=== PATIENT | male | born 1940 | race Caucasian/White ===

== ENCOUNTER 2020-09-26 09:45 | Outpatient (CLI) | payer OTHER, SELFPAY ==
--- NOTE | ~2020-09-26 | XR_ITS ---
EXAMINATION: XR barium swallow modified DATE: 09/26/2020 10:17 INDICATION: Dysphagia. TECHNIQUE: The patient was given barium-containing material of multiple consistencies to swallow by t rocío speech pathologist while I performed fluoroscopy. Fluoroscopy exposure time was 2.0 minutes. The n umber of fluoroscopy images saved to the PACS was 2. Dose-area product was 1.327 Gy-cm^2. FINDINGS: The oral stage demonstrates lingual pumping and apraxia of the swallow. The pharyngeal stage demonstr ates reduced laryngeal elevation, reduced tongue base retraction, reduced pharyngeal squeeze, vallecu lar residue, piriform sinus residue, pharyngeal wall residue, and laryngeal penetration. There is tra ce aspiration with thin liquids and pudding. IMPRESSION: 1. Trace aspiration with thin liquids and pudding. 2. Please refer to the speech therapy report for recommendations. Reviewed, dictated and finalized at location A.
--- NOTE | 2020-09-26 16:12 | STOPEVAL ---
MODIFIED BARIUM SWALLOW EVALUATION: Thank you for referring Willian Novoa to [facility].? Attending Provider: Zack Hurst fax: Outpatient Past Medical History Past Medical History Source of Past Medical History Patient,Family/Significant Other Neurological History Hx Cerebrovascular Accident (CVA) Yes: multiple but most recent 07-23-20 Gastrointestinal History Hx Other Gastrointestinal Disorders Yes: PEG tube r/t dysphagia Prior Level of Function Prior Swallow Level Prior Intake Method NPO/PEG Comments Additional Prior Level of Function reportedly pt has PEG tube for Comments nutrition but is able to have mildly thick liquids and pudding consistency for pleasure feeding Modified Barium Swallow Evaluation Recent Swallowing History Reports Dysphagia Yes Onset of Dysphagia 07-23-20 History of Dysphagia Yes History of Related Medical Diagnosis CVA Other Factors Impacting Dysphagia Neurological Impairment History of Pneumonia No Reported Difficult Consistencies Thin Liquids,Thick Liquids, Pureed,Solids Intake Method Prior to Swallow Gastrostomy,NPO Evaluation Consistency Thin Uncontrolled 1 Other Amount cued to take a small sip Method of Presentation Cup Oral Preparatory Phase Comments swallow apraxia; lingual pumping Oral Phase Comments prolonged oral stage r/t apraxia Pharyngeal Phase Symptoms Aspiration,Bony Protuberance, Laryngeal Penetration,Reduced Laryngeal Elevation,Reduced Lingual Pressure,Residue in [place],Residue/Pyriform Sinus Severity of Vallecular Residue Mild - 5-25 % Epiglottic Ligament Visable Severity of Pyriform Sinus Residue Mild - 5-25 % Up Wall to Quarter Full 8 Point Laryngeal Penetration-Aspiration Material Enters Airway Below Scale Vocal Cords, No Effort Made to Eject Aspiration Timing After the Swallow Aspiration Severity Trace Cervical/Esophageal Symptoms Within Functional Limits Pureed Consistency Method of Presentation Spoon Oral Preparatory Phase Comments swallow apraxia; lingual pumping Oral Phase Comments prolonged oral stage r/t apraxia Pharyngeal Phase Symptoms Aspiration,Bony Protuberance, Coating/Pharyngeal Nelson, Laryngeal Penetration,Reduced
== END 2020-09-26 09:46 | disposition home or self-care (01) ==
LOC: ANHIMG 09:51
DX: R13.10 Dysphagia, unspecified (principal)
CPT/HCPCS: 92611

== ENCOUNTER 2020-11-17 10:26 | Outpatient (CLI) | payer OTHER, SELFPAY ==
--- NOTE | ~2020-11-17 | XR_ITS ---
EXAMINATION: XR barium swallow modified DATE: 11/17/2020 11:00 INDICATION: Dysphagia. TECHNIQUE: The patient was given barium-containing material of multiple consistencies to swallow by charanjit alford speech pathologist while I performed fluoroscopy. Dose-area product was 4.2 Gy-cm2. 6.7 minutes fluoroscopy time FINDINGS: Oral Stage: Delay secondary to excessive lingual pumping to initiate swallow, Pharyngeal Phase: Mild reduced laryngeal elevation, mild to moderate reduced tongue base retraction mildly reduced pharyngeal squeeze Moderate vallecular and piriform sinus residue Laryngeal penetration 5 cc thin liquid by spoon. No aspiration. Cervical/Esophageal Stage: Within functional limits IMPRESSION: Modified esophagram findings as above. Please refer to the speech therapy report for [facility]. Reviewed, dictated and finalized at Location [facility]. Reviewed, dictated and finalized at location A. IMPRESSION: Modified esophagram findings as above. Please refer to the speech t herapy report for specific recommendations.
--- NOTE | 2020-11-17 12:09 | STOPEVAL ---
Thank you for referring Willian Novoa to [facility].? The patient is scheduled to be seen for therapy? ____x/week for ___ weeks. Please review, sign, date and return this plan of care PIERCE. I agree with and certify that the following plan of care is medically necessary. Referring Physician Date Admitting Provider: Attending Provider: Zack Hurst Referring Provider:
--- NOTE | 2020-11-17 12:26 | STOPEVAL ---
Thank you for referring Willian Novoa to [facility].? The patient is scheduled to be seen for therapy? ____x/week for ___ weeks. Please review, sign, date and return this plan of care PIERCE. I agree with and certify that the following plan of care is medically necessary. Referring Physician Date Admitting Provider: Attending Provider: Zack Hurst Referring Provider: SARA Outpatient Evaluation Start: 11/17/20 12:14 Freq: Status: Active Protocol: Document 11/17/20 12:19 [facility] (Rec: 11/17/20 12:26 [email or web address]) Outpatient Past Medical History Neurological History Hx Cerebrovascular Accident (CVA) Yes: multiple but most recent 07-23-20 Gastrointestinal History Hx Other Gastrointestinal Disorders Yes: PEG tube r/t dysphagia Pain Assessment Timing of Pain Assessment Timing of Pain Assessment Assessment Self Report Self Report Pain Level 0 Pain Score Pain Score 0: Self Report Modified Barium Swallow Evaluation Consistency Thin Uncontrolled 1 Method of Presentation Cup Oral Preparatory Symptoms Within Functional Limits Oral Phase Symptoms Delayed Onset,Lingual Pumping, Slow Oral Transit Pharyngeal Phase Symptoms Residue in [place],Residue/ Pyriform Sinus Severity of Vallecular Residue Trace - 1-5 % Trace Coating of the Mucosa Severity of Pyriform Sinus Residue Trace - 1-5 % Trace Coating of the Mucosa 8 Point Laryngeal Penetration-Aspiration Material Does Not Enter Airway Scale Cervical/Esophageal Symptoms Within Functional Limits Mildly Thick Uncontrolled 1 Method of Presentation Cup Oral Preparatory Symptoms Within Functional Limits Oral Phase Symptoms Delayed Onset,Lingual Pumping, Slow Oral Transit Pharyngeal Phase Symptoms Residue in [place],Residue/ Pyriform Sinus Severity of Vallecular Residue Mild - 5-25 % Epiglottic Ligament Visable Severity of Pyriform Sinus Residue Trace - 1-5 % Trace Coating of the Mucosa 8 Point Laryngeal Penetration-Aspiration Material Does Not Enter Airway Scale Cervical/Esophageal Symptoms Within Functional Limits Mildly Thick 5 mL Method of Presentation Spoon Oral Preparatory Symptoms Within Functional Limits Oral Phase Symptoms Delayed Onset,Lingual Pumping, Slow Oral Transit Pharyngeal Phase Symptoms Residue in [place],Residue/ Pyriform Sinus Severity of Vallecular Residue Mild - 5-25 % Epiglottic Ligament Visable Severity of
== END 2020-11-17 10:27 | disposition home or self-care (01) ==
DX: R13.10 Dysphagia, unspecified (principal)
CPT/HCPCS: 92611

== ENCOUNTER 2020-12-30 10:14 | Observation (INO) | payer OTHER, SELFPAY ==
[2020-12-30] VITALS (16 sets, daily range): BP systolic 123–151; BP diastolic 55–85; PULSE 58–128; RESP 14–20; TEMP 36.4–36.9; O2SAT 97–99; BMI 17.6
--- NOTE | ~2020-12-30 | XR_ITS ---
EXAMINATION: XR chest 2V DATE: 12/30/2020 10:38 INDICATION: Weakness TECHNIQUE: frontal and lateral views of the chest were obtained. COMPARISON: Chest radiograph dated 04/17/2018 FINDINGS: New airspace opacities in the left lower lobe concerning for aspiration or pneumonia. Right lung roshni ins clear. No pleural effusion or pneumothorax. The cardiomediastinal silhouette is within normal peraza its for AP technique. Moderate cervical spondylosis. There are bridging osteophytes at multiple level s in the spine, consistent with diffuse idiopathic skeletal hyperostosis (DISH). IMPRESSION: 1. Left lower lobe opacities with differential in the acute setting including pneumonia, aspiration o r less likely asymmetric pulmonary edema. Reviewed, dictated and finalized at location A. IMPRESSION: 1. Left lower lobe opacities with differential in the acute setting including p neumonia, aspiration or less likely asymmetric pulmonary edema.
--- NOTE | ~2020-12-30 | US_ITS ---
EXAMINATION: US abdomen limited DATE: 12/31/2020 09:08 INDICATION: Hyperbilirubinemia. TECHNIQUE: Multiple grayscale and Doppler ultrasound images of the abdomen were obtained. COMPARISON: None FINDINGS: The visualized portions of the head and body of the pancreas are normal. The liver is nasim l without focal lesion. No liver surface nodularity. The gallbladder is normal in size and contains g allstones. Gallbladder wall thickening is noted. No sonographic Azar sign. The common duct is nasim l and measures 3 mm. 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 IMPRESSION: 1. Cholelithiasis. Gallbladder wall thickening may be secondary to chronic cholecystitis, chronic everardo er disease, or interstitial edema. 2. 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 Reviewed, dictated and finalized at location A. IMPRESSION: 1. Cholelithiasis. Gallbladder wall thickening may be secondary to chronic chol ecystitis, chronic liver disease, or interstitial edema. 2. 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
--- NOTE | 2020-12-30 10:26 | ECG_ITS ---
Measurements Intervals Mather Rate: 85 P: [place]: 0 QRS: 45 QRSD: 121 T: 88 QT: 458 QTc: 546 Interpretive Statements ATRIAL FIBRILLATION VENTRICULAR PREMATURE COMPLEX INCOMPLETE LEFT BUNDLE BRANCH BLOCK VOLTAGE CRITERIA FOR LVH BORDERLINE ST-T WAVE ABNORMALITY- INF/LAT LEADS BASELINE ARTIFACT- II, III, AVR, AVF, V2-V6 ABNORMAL ECG Electronically Signed On 12-30-2020 17:13:08 CDT by Maurice Gomez D.O.
[2020-12-30 11:02] LABS: Basophils Percent Auto 0.2 % (0.2-1.2); Eosinophils Percent Auto 0.1 % (0-4.4); Hemoglobin 13.7 g/dL (14.0-18.0); Immature Granulocyte Absolute 0.06 K/mm3 (0.00-0.031); Immature Granulocyte Percent A 0.5 % (0-0.5); Lymphocytes Absolute Auto 0.77 K/mm3 (0.9-3.2); Lymphocytes Percent Auto 6.3 % (18.3-44.2); Mean Corpuscular HGB Conc 34.3 g/dl (32-36); Mean Corpuscular Hemoglobin 33.3 pg (26-34); Mean Corpuscular Volume 97.1 fl (80-100); Mean Platelet Volume 10.1 fl (7.4-10.4); Monocytes Absolute Auto 0.6 K/mm3 (0.1-0.6); Monocytes Percent Auto 4.5 % (2.6-8.5); Neutrophils Absolute Auto 10.9 K/mm3 (1.3-6.7); Neutrophils Percent Auto 88.4 % (45.5-73.1); Platelet Count Result 110 k/mm3 (150-375); Red Blood Count 4.12 M/mm3 (4.6-6.20); Red Cell Distribution Width 13.2 % (11.5-14.5); White Blood Count 12.3 K/mm3 (4.5-10.0)
[2020-12-30 11:14] LABS: Alanine Aminotransferase 26 U/L (4-50); Albumin Level 3.5 g/dL (3.5-5.1); Alkaline Phosphatase 76 U/L (38-126); Anion Gap 6 mmol/L (8-16); Aspartate Amino Transferase 30 U/L (17-59); Bilirubin,Total 3.6 mg/dL (0.2-1.3); Blood Urea Nitrogen 24 mg/dL (9-20); Calcium 9.6 mg/dL (8.4-10.2); Carbon Dioxide 34 mmol/L (22-30); Chloride 99 mmol/L (98-107); Estimated CRCL calculation 42 ml/min; Estimated Glomerular Filt Rate > 60; Glucose 129 mg/dL (65-110); Potassium 2.8 mmol/L (3.4-5.0); Sodium 139 mmol/L (137-145)
--- NOTE | 2020-12-30 11:57 | PC.NURSE ---
Patient's tells me that patient's mentation and speech is normal for him following a stroke that occurred in june of this year. She does tell me that the patient does need thickened liquids and is able to eat soft foods and that he has not had any change in his appetite prior to today. Lastly she tells me that the patient has not had any medication today.
--- NOTE | 2020-12-30 12:13 | PC.NURSE ---
Moderately thick orange juice ordered from Diet[facility] at this time.
[2020-12-30] MEDS: POTASSIUM CHLORIDE 20 MEQ PACKET (FOR LIQUID) 40 MEQ PO (12:31)
[2020-12-30] MEDS: SODIUM CHLORIDE 0.9% IV 1,000 ML 125 ML (12:45)
--- NOTE | 2020-12-30 13:12 | ED.WEAKNESS ---
HPI - Weakness General Chief complaint: Weakness Stated complaint: weakness/near syncope Time Seen by Provider: 12/30/20 10:19 History of Present Illness HPI Narrative: Patient is an 80-year-old male who presents ER with weakness and near syncope. Patient was getting out of the shower when he became lightheaded and eased him down to the ground he was too weak to get back up. Reports has been having progressive cough for the last week. No known Covid exposure. Denies fevers or chills or sweats. He denies any chest pain is only oriented x2. He is aware that he had a near syncopal event however. Related Data Home Medications Medication Instructions Recorded Confirmed apixaban [Eliquis] 5 mg PO BID 12/30/20 12/30/20 bimatoprost [Lumigan] 1 drp LEFT EYE HS 12/30/20 12/30/20 cholecalciferol (vitamin D3) 50 mcg PO DAILY 12/30/20 12/30/20 [Vitamin D3] diltiazem HCl 30 mg PO QID 12/30/20 12/30/20 lisinopril 40 mg PO DAILY 12/30/20 12/30/20 metoprolol tartrate 50 mg PO BID 12/30/20 12/30/20 simvastatin 20 mg PO HS 12/30/20 12/30/20 timolol maleate 1 drp LEFT EYE DAILY 12/30/20 12/30/20 Allergies Allergy/AdvReac Type Severity Reaction Status Date / Time Penicillins Allergy Severe Rash Verified 12/30/20 14:03 Review of Systems Review of Systems: ROS unobtainable: Yes unobtainable due to mental status [facility] Past Medical History Medical History (Updated 12/30/20 @ 18:28 by Jp Dias MD) Atrial fibrillation Benign prostatic hyperplasia Cerebrovascular accident Chronic anticoagulation Glaucoma Hyperlipidemia Hypertension Surgical History Surgical History (Updated 12/30/20 @ 13:44 by Nicky Miles PA-C) History of open reduction and internal fixation (ORIF) procedure Left 5th finger. History of tonsillectomy Family History Family History (Updated 12/30/20 @ 13:44 by Nicky Miles PA-C) Mother Diabetes mellitus Social History Social History (Updated 12/30/20 @ 13:45 by Nicky Miles PA-C) Social History: The patient lives with his in [place]. Smoking status: Never smoker Alcohol intake: never Substance use: never Spiritual care concerns: No Exam Narrative: GENERAL: Chronically ill-appearing, well-nourished, and in no acute distress. HEAD: Normocephalic, atraumatic. EYES: PERRL and EOMI. ENT: Mucous membranes moist. CHEST: Clear to auscultation. No respiratory distress. HEART: Irregular regular rate and rhythm. Normal peripheral pulses. ABDOMEN: Soft, nontender, nondistended. EXTREMITIES: Normal range of motion. No edema. SKIN: Warm, dry, no rash. NEURO: Alert and oriented x2. Course Course Emergency Course: Admit to the hospitalist service for weakness and pneumonia and hypokalemia. Also patient is going to fibrillation with RVR while in the ER and he has been given diltiazem IV. Vital Signs Vital signs: Vital Signs Temperature 98 F 12/30/20 10:20 Pulse Rate 91 12/30/20 10:20 Respiratory Rate 16 12/30/20 10:20 Blood Pressure 134/66 12/30/20 10:20 Pulse Oximetry 98 12/30/20 10:20 Temperature 97.6 F 12/30/20 15:42 Pulse Rate 89 12/30/20 18:00 Respiratory Rate 16 12/30/20 15:42 Blood Pressure 151/83 H 12/30/20 15:42 Pulse Oximetry 98 12/30/20 15:42 MDM - Weakness Lab Data Result diagrams: 12/30/20 10:55 12/30/20 10:56 Labs: Lab Results 12/30/20 12/30/20 12/30/20 Range/Units 10:55 10:56 13:10 WBC 12.3 H (4.5-10.0) K/mm3 RBC 4.12 L (4.6-6.20) M/mm3 Hgb 13.7 L (14.0-18.0) g/dL Hct 40.0 L (42.0-52.0) % MCV 97.1 (80-100) fl MCH 33.3 (26-34) pg MCHC 34.3 (32-36) g/dl RDW 13.2 (11.5-14.5) % Plt Count 110 L (150-375) k/mm3 MPV 10.1 (7.4-10.4) fl Immature Gran % (Auto) 0.5 (0-0.5) % Neut % (Auto) 88.4 H (45.5-73.1) % Lymph % (Auto) 6.3 L (18.3-44.2) % [place] % (Auto) 4.5 (2.6-8.5) % Eos % (Auto)
[2020-12-30 13:48] LABS: Add Urine Microscopic? YES; Appearance Urine Clear (Clear); Bilirubin Urine Negative (Negative); Blood Urine 1+ (Negative); Color Urine Yellow (Yellow); Glucose Urine UA Negative (Negative); Ketones Urine Negative (Negative); Leukocyte Esterase Ur Negative LEU/UL (Negative); Mucus Urine Rare /lpf; Nitrate Urine Negative (Negative); Protein Urine 2+ mg/dL (Negative); Specific Grav Ur 1.017 (1.001-1.035); WBC Urine 0-3 /hpf
--- NOTE | 2020-12-30 14:00 | PM.IMHP ---
H&P: HPI History of Present Illness Date/Time: 12/30/20 14:00 Chief Complaint: Weakness. Narrative: This is a very pleasant 80-year-old male with history of stroke, hypertension, hyperlipidemia, and atrial fibrillation who presented to the emergency department earlier today via EMS from home for evaluation of weakness. He has been feeling in his usual state of health recently and he reportedly had no complaints upon waking this morning. Not long prior to arrival, his was helping him take a shower when he began to feel weak quite suddenly though luckily his was able to gently lower him to the ground without incident. He did not sustain any injuries and he denies loss of consciousness. He also denies feeling near syncopal and really was not feeling lightheaded or dizzy, just profoundly weak all over. On arrival to the emergency department his vital signs were stable. His potassium level was low at 2.8 and he in his indicate that he has had issues with low potassium in the past though he is not on supplementation at home. Chest x-ray demonstrated left lower lobe opacities consistent with pneumonia, aspiration, or less likely pulmonary edema. With further questioning he has been seeing a speech therapist since his most recent stroke in June 2020; his G-tube was removed relatively recently, within the last month or so. On occasion he has difficulties swallowing and in fact he did cough shortly after eating a bite of putting not long prior to my arrival to the room. At this time he has no complaints, tells me he feels just fine and was quite disappointed that he is being admitted to the hospital overnight. He specifically denies fever, chills, sweats, headache, vertigo, syncope, near syncope, cold and flu symptoms, cough, shortness of breath, chest pain, pleuritic pain, nausea, vomiting, diarrhea, and dysuria. No sick contacts or COVID exposure. Review of Systems Review of Systems: Twelve systems were reviewed with pertinent positives and negatives as per HPI. Except as documented, all other systems were reviewed and are negative. [facility] Past Medical History Medical History (Updated 12/30/20 @ 18:37 by Nicky Miles PA-C) Atrial fibrillation Benign prostatic hyperplasia Cerebrovascular accident Ischemic stroke in 2006. Hemorrhagic stroke on 04/17/2018. Ischemic stroke on 07/15/2020 with dysphagia and expressive aphasia. Chronic anticoagulation Glaucoma History of gastrostomy tube placement Hyperlipidemia Hypertension Surgical History Surgical History (Updated 12/30/20 @ 13:44 by Nicky Miles PA-C) History of open reduction and internal fixation (ORIF) procedure Left 5th finger. History of tonsillectomy Family History Family History Mother Diabetes mellitus Social History Social History (Updated 12/30/20 @ 18:35 by Nicky Miles PA-C) Social History: Surrogate decision maker: Rachna Novoa, . Code status: Full code. Smoking status: Never smoker Alcohol intake: never Substance use: never Additional living arrangements comments: Patient lives with his in [place]. He ambulates with a walker. Additional occupation/education comments: Retired. Previously enjoyed playing tennis. Meds Home Medications and Allergies Home Medications Medication Instructions Recorded Confirmed Type apixaban [Eliquis] 5 mg PO BID 12/30/20 12/30/20 History bimatoprost [Lumigan] 1 drp LEFT EYE HS 12/30/20 12/30/20 History cholecalciferol (vitamin D3) 50 mcg PO DAILY 12/30/20 12/30/20 History [Vitamin D3] diltiazem HCl 30 mg PO QID 12/30/20 12/30/20 History lisinopril 40 mg PO DAILY 12/30/20 12/30/20 History metoprolol tartrate 50 mg PO BID 12/30/20 12/30/20 History simvastatin 20 mg PO HS 12/30/20 12/30/20 History timolol maleate 1 drp LEFT EYE DAILY 12/30/20 12/30/20 History Allergies Allergy/AdvReac Type Severity Reacti
--- NOTE | 2020-12-30 14:17 | PC.NURSE ---
Patient has had previous CVA and has dysphagia, needing thickened liquids and soft food diet. He also requires all medications to be crushed. Patient is unable to feed himself and will require help with this task. His states that when he is eating, he will request water and by this he means ice chips. He was g-tube fed up until about a month ago when the tube was removed. He is slow to eat, slow to swallow, and requires small amounts of food and liquid for each bite. He is unable to drink from a cup or straw and must take liquids by spoon. He also has slurred speech which his also tells me began after his previous CVA. Lastly he is hard of hearing but is able to communicate well with staff.
[2020-12-30 14:18] LABS: EDCOVIDSCREEN Negative (Negative)
--- NOTE | 2020-12-30 15:14 | PC.NURSE ---
Patient's is present in the ED and is able to provided assistance to this patient by feeding him. Due to his complex needs with feeding related to his dysphagia the limehouse worker was contacted to see if the would be able to accompany the patient to assist with his care. district plant supervisor reports that the unit must be contacted as they would have the say dealing with this issue. maple products supervisor reports that due to visitor restrictions this patient's would not be able to accompany him to the floor. IMU DAJUAN Botello notified me of this decision and family was informed.
--- NOTE | 2020-12-30 15:40 | ADMGEN ---
This patient, Willian Novoa, was admitted to IMU Room 212-01. Patient/family oriented to hospital policies and general routines including ID bracelet, bed and alarms, visiting hours, pain management, procedures, bathroom and other care routines, personal items, smoking policy, room service/diet, and visiting hours. Information on how to activate the Rapid Response Team has been discussed. Patient/Family are encouraged to report perceived risks to care and to ask questions if they do not understand what they are told or what they should do.
[2020-12-30 20:40] LABS: Anion Gap 5 mmol/L (8-16); Bilirubin Indirect 3.9 mg/dL (0-1.1); Blood Urea Nitrogen 23 mg/dL (9-20); Calcium 9.1 mg/dL (8.4-10.2); Carbon Dioxide 31 mmol/L (22-30); Chloride 100 mmol/L (98-107); Estimated CRCL calculation 45 ml/min; Estimated Glomerular Filt Rate > 60; Glucose 62 mg/dL (65-110); Magnesium 1.7 mg/dL (1.6-2.3); Potassium 3.1 mmol/L (3.4-5.0); Sodium 136 mmol/L (137-145)
[2020-12-30] MEDS: APIXABAN 5 MG TABLET PO (21:42)
[2020-12-30] MEDS: METOPROLOL TARTRATE 50 MG TAB PO (21:42)
[2020-12-30] MEDS: dilTIAZem HCL 30 MG TABLET PO (21:43)
[2020-12-30] MEDS: SIMVASTATIN 20 MG TABLET PO (21:43)
[2020-12-30] MEDS: LATANOPROST 0.005% OP SOLN 2.5 ML BTL 1 DROP EACH EYE (21:43)
[2020-12-31] VITALS (10 sets, daily range): BP systolic 131–151; BP diastolic 49–77; PULSE 5–97; RESP 12–16; TEMP 36.4–37.1; O2SAT 97
[2020-12-31 05:44] LABS: Alanine Aminotransferase 26 U/L (4-50); Albumin Level 3.2 g/dL (3.5-5.1); Alkaline Phosphatase 74 U/L (38-126); Aspartate Amino Transferase 32 U/L (17-59)
[2020-12-31] MEDS: POTASSIUM CHLORIDE 20 MEQ TABLET 40 MEQ PO (09:07)
[2020-12-31] MEDS: METOPROLOL TARTRATE 50 MG TAB PO (09:09)
[2020-12-31] MEDS: APIXABAN 5 MG TABLET PO (09:10)
[2020-12-31] MEDS: CHOLECALCIFEROL 1,000 UNITS TABLET 2000 UNITS PO (09:10)
[2020-12-31] MEDS: lisinopriL 20 MG TABLET 40 MG PO (09:10)
[2020-12-31] MEDS: dilTIAZem HCL 30 MG TABLET PO ×2 (09:11→13:25)
[2020-12-31] MEDS: TIMOLOL MALEATE 0.5% OP SOLN 5 ML BOTTLE 1 DROP LEFT EYE (09:11)
--- NOTE | 2020-12-31 10:07 | PM.IMPN ---
Progress Note: A&P Assessment and Plan (1) Left lower lobe pneumonia: Qualifiers: Pneumonia type: due to unspecified organism Qualified Code(s): J18.9 - Pneumonia, unspecified organism Code(s): J18.9 - Pneumonia, unspecified organism Status: Acute Assessment and Plan: May very well be due to aspiration though will cover for community-acquired pneumonia at this time. COVID seems less likely with a negative rapid test in the ED and lobar infiltrate Speech therapy conferred and recommends continue current diet. (2) Atrial fibrillation with rapid ventricular response: Code(s): I48.91 - Unspecified atrial fibrillation Status: Acute Assessment and Plan: Missed home meds 12/30 Controlled on metoprolol, diltiazem Continue apixaban (3) Hypokalemia: Code(s): E87.6 - Hypokalemia Status: Acute Assessment and Plan: 12/30 K 2.8, 12/31 3.2 12/31 PO KCL, f/u lab in afternoon with mag and urine K as patient wishes to go home PIERCE (4) Elevated bilirubin: Code(s): R17 - Unspecified jaundice Status: Acute Assessment and Plan: No abdominal discomfort. Not jaundiced. Likely Gilbert syndrome vs hematologic source (given anemia and unconjugated bilirubin) Hepatitis panel and abdominal u/s pending Anemia evaluation pending (5) Generalized weakness: Code(s): R53.1 - Weakness Status: Acute Assessment and Plan: Most likely related to hypokalemia, pneumonia. Orthostatic vital signs. Fall precautions. PT/OT consulted. (6) Hypertension: Qualifiers: Hypertension type: unspecified Qualified Code(s): I10 - Essential (primary) hypertension Code(s): I10 - Essential (primary) hypertension Status: Acute Assessment and Plan: Continue home regimen 12/31 BP reviewed and control adequate (7) Chronic anticoagulation: Code(s): Z79.01 - buttermaker (current) use of anticoagulants Status: Acute Assessment and Plan: Continue apixaban for stroke prophylaxis. Subjective Date/time seen: 12/31/20 10:07 Review of Systems Review of Systems: All systems reviewed & are unremarkable except as noted in HPI and below Exam Narrative: General: Thin elderly male sitting up in bed in no acute distress. Weight: 55.7 kg. BMI: 17.6. HEENT: Left cornea is cloudy and pupil is minimally reactive. Right pupil is reactive. Sclerae anicteric. Conjunctiva mildly injected. Oral mucosa moist. Oropharynx clear. Neck: Supple. No JVD Respiratory: Respirations are even and nonlabored. Rales noted at the left base. Cardiovascular: Irregular rate and rhythm with S1-S2. Gastrointestinal: Abdomen is soft, flat, nontender, nondistended with positive bowel sounds. Skin: Warm and dry. Chronic skin changes of the lower legs and feet bilaterally. Extremities: No cyanosis, clubbing, or edema. Radial pulses 2+. Pedal pulses diminished but palpable. Neurological: Alert and oriented. Cranial nerves 2-12 are grossly intact, except mild right facial droop. Speech with mild dysarthria and mild expressive aphasia. Psychiatric: Pleasant and cooperative with normal mood and affect. Alert and oriented to person, place, year and month (after he looked at wall calendar) Objective Data Vital Signs Vital Signs: Vital Signs - 24 hr 12/30/20 10:20 12/30/20 11:50 12/30/20 12:56 Temperature 98 F 98.1 F 97.8 F Pulse Rate 91 116 H 128 H Respiratory Rate 16 15 20 Blood Pressure 134/66 143/69 H 144/67 H Pulse Oximetry 98 97 97 12/30/20 13:46 12/30/20 15:18 12/30/20 15:42 Temperature 97.7 F 98.3 F 97.6 F Pulse Rate 94 85 58 L Respiratory Rate 14 18 16 Blood Pressure 132/64 130/55 L 151/83 H Pulse Oximetry 98 98 98 12/30/20 16:00 12/30/20 18:00 12/30/20 19:53 Temperature 98 F Pulse Rate 93 89 93 Respiratory Rate 18 Blood Pressure 131/77 Pulse Oximetry 99 12/30/20 19:55 12/30/20 19:56 12/30/20 20:0
--- NOTE | 2020-12-31 10:11 | PCSTNOTE ---
Bedside swallow study completed. Please see ST Inpatient Evaluation for details and recommendations.
[2020-12-31 13:10] LABS: Immature Reticulocyte Fraction 6.5 % (3.0-15.9); Reticulocyte Hemoglobin Conten 39.7 pg (28.2-35.7); Reticulocyte Percent 0.89 % (0.7-4.3); Reticulocytes Absolute 0.04 B/L (32.2-175.7)
[2020-12-31 13:21] LABS: Anion Gap 4 mmol/L (8-16); Blood Urea Nitrogen 20 mg/dL (9-20); Calcium 9.8 mg/dL (8.4-10.2); Carbon Dioxide 34 mmol/L (22-30); Chloride 100 mmol/L (98-107); Estimated CRCL calculation 45 ml/min; Estimated Glomerular Filt Rate > 60; Glucose 88 mg/dL (65-110); Magnesium 1.8 mg/dL (1.6-2.3); Potassium 3.6 mmol/L (3.4-5.0); Sodium 138 mmol/L (137-145)
--- NOTE | 2020-12-31 13:52 | PM.DS ---
DS: Admitting Diagnosis Admitting Diagnosis Hypokalemia with left lower lobe pneumonia DS: Discharge Diagnosis Discharge Diagnosis (1) Left lower lobe pneumonia: Qualifiers: Pneumonia type: due to unspecified organism Qualified Code(s): J18.9 - Pneumonia, unspecified organism Code(s): J18.9 - Pneumonia, unspecified organism Status: Acute Assessment and Plan: May very well be due to aspiration though responding to treatment for CAP COVID is unlikely with a negative rapid test in the ED and lobar infiltrate Speech therapy evaluated and recommends continue current diet. (2) Atrial fibrillation with rapid ventricular response: Code(s): I48.91 - Unspecified atrial fibrillation Status: Acute Assessment and Plan: Missed home meds 12/30 Controlled on metoprolol, diltiazem Continue apixaban (3) Hypokalemia: Code(s): E87.6 - Hypokalemia Status: Acute Assessment and Plan: 12/30 K 2.8, 12/31 3.2 12/31 PO KCL, f/u lab in afternoon K 3.6 with mag 1.8 and urine K pending (4) Elevated bilirubin: Code(s): R17 - Unspecified jaundice Status: Acute Assessment and Plan: No abdominal discomfort. Not jaundiced. Likely Gilbert syndrome vs hematologic source (given anemia and unconjugated bilirubin) Hepatitis panel and abdominal u/s pending Anemia evaluation with NL iron, folic acid, B12, reticulocyte count Stool for occult blood was ordered but not completed during hospitalization (5) Generalized weakness: Code(s): R53.1 - Weakness Status: Acute Assessment and Plan: Most likely related to hypokalemia, pneumonia. Fall precautions. (6) Hypertension: Qualifiers: Hypertension type: unspecified Qualified Code(s): I10 - Essential (primary) hypertension Code(s): I10 - Essential (primary) hypertension Status: Acute Assessment and Plan: Continue home regimen 12/31 BP reviewed and control adequate (7) Chronic anticoagulation: Code(s): Z79.01 - half-way (current) use of anticoagulants Status: Acute Assessment and Plan: Continue apixaban for stroke prophylaxis. DS: Summary Hospital Course Reason for hospitalization: Generalized weakness Hospital Course: Admitted from home with generalized weakness. Found to have left lower lobe infiltrate and potassium level of 2.8. Has a history of dysphagia due to stroke and also history of recurrent episodes of hypokalemia. He is on no diuretics and no potassium supplementation and does not drink alcohol. He does have hypertension. After potassium replacement to normal level at 3.6 and 2 doses of ceftriaxone with azithromycin he was feeling much better and wished to go home. He was tolerating his diet. He was able ambulate as he does at home. He was alert and oriented, pleasant and cooperative. Status at Discharge Overall status at discharge: patient is progressing back to baseline Time Spent with Patient Time attestation: Total time spent providing and/or coordinating discharge services: Time spent: Greater than 30 minutes Exam Narrative: General: Thin elderly male sitting up in bed in no acute distress. Weight: 55.7 kg. BMI: 17.6. HEENT: Left cornea is cloudy and pupil is minimally reactive. Right pupil is reactive. Sclerae anicteric. Conjunctiva mildly injected. Oral mucosa moist. Oropharynx clear. Neck: Supple. No JVD Respiratory: Respirations are even and nonlabored. Rales noted at the left base. Cardiovascular: Irregular rate and rhythm with S1-S2. Gastrointestinal: Abdomen is soft, flat, nontender, nondistended with positive bowel sounds. Skin: Warm and dry. Chronic skin changes of the lower legs and feet bilaterally. Extremities: No cyanosis, clubbing, or edema. Radial pulses 2+. Pedal pulses diminished but palpable. Neurological: Alert and oriented. Cranial nerves 2-12 are grossly intact, except mild right faci
[2020-12-31 14:12] LABS: Iron 66 ug/dL (49-181)
[2020-12-31 14:22] LABS: Percent Iron Saturation 25 % (20-50)
[2020-12-31 14:27] LABS: Folic Acid 13.4 ng/mL (2.76->20)
[2020-12-31 14:45] LABS: Hepatitis B Surface Antigen Negative (Negative)
[2020-12-31 14:51] LABS: HAV RESULT Negative (Negative); Hepatitis B Core IgM Result Negative (Negative)
[2020-12-31 15:02] LABS: Hepatitis C Virus Antibody Negative (Negative)
== END 2020-12-31 15:12 | disposition home or self-care (01) ==
LOC: ANHED 10:22 → ANHIMU 14:39
PROVIDERS: Physician Assistant; Admitting Provider Internal Medicine; Emergency Provider Emergency Medicine; Visit Provider Internal Medicine
DX: J18.9 Pneumonia, unspecified organism (principal); I48.91 Unspecified atrial fibrillation; E87.6 Hypokalemia; R17 Unspecified jaundice; R53.1 Weakness; N40.0 Benign prostatic hyperplasia without lower urinary tract symptoms; I10 Essential (primary) hypertension; E78.5 Hyperlipidemia, unspecified; H40.9 Unspecified glaucoma; Z79.01 Long term (current) use of anticoagulants; Z86.73 Personal history of transient ischemic attack (TIA), and cerebral infarction without residual deficits; Z20.822 Contact with and (suspected) exposure to COVID-19
CPT/HCPCS: 36415; 71046; 76705; 80048; 80053; 80076; 81001; 82248; 82607; 82746; 83540; 83550; 83735; 84443; 85025; 85046; 86705; 86709; 86803; 87040; 87340; 87426; 92610; 93005; 96365; 96366; 96368; 96375; 97161; 97165; 99285; A9270; C9803; G0378; J0456; J0696; J3480; J7030; J7060

== ENCOUNTER 2021-01-04 11:00 | Outpatient (RCR) | payer OTHER, SELFPAY ==
--- NOTE | 2020-12-12 16:44 | STOPEVAL ---
SPEECH THERAPY INITIAL EVALUATION: Thank you for referring Willian Novoa to [facility].? The patient is scheduled to be seen for therapy? 3x/week for 4 weeks. Please review, sign, date and return this plan of care PIERCE. I agree with and certify that the following plan of care is medically necessary. Referring Physician Date Attending Provider: Zack Hurst Outpatient Past Medical History Past Medical History Source of Past Medical History Patient,Family/Significant Other Neurological History Hx Cerebrovascular Accident (CVA) Yes: multiple but most recent 07-23-20 Cardiovascular History Hx Atrial Fibrillation Yes Respiratory History Hx Respiratory Disorders No Significant History Gastrointestinal History Hx Other Gastrointestinal Disorders Yes: PEG tube r/t dysphagia - removed 11-29-20 Genitourinary History Hx Genitourinary Disorders No Significant History Musculoskeletal History Hx Musculoskeletal Disorders No Significant History Hematological History Hx Hematological Disorders No Significant History Endocrine History Hx Endocrine Disorders No Significant History HEENT History Hx Cataracts Yes Hx Glaucoma Yes Integumentary History Hx Skin Disorders No Significant History Reproductive History Hx Reproductive Disorders No Significant History Psychosocial History Hx Psychiatric Disorders No Significant History Pain History History of Any Previous or Ongoing No Significant History Instance of Pain Bedside Swallow Evaluation General Reports Dysphagia Yes: sometimes tells his spouse I can't swallow Duration of Dysphagia off and on several years History of Related Medical Diagnosis CVA History of Feeding Problems Previous Swallow Evaluation, Weight Loss Reported Difficult Consistencies Thin Liquids Meal Observed Bedside Swallows History of Dysphagia Yes Other Factors Impacting Dysphagia Halo,Neurological Impairment Intake Method Prior to Swallow Oral Evaluation Diet Prior to Swallow Evaluation Soft and Bite Size, Level 6 Liquid Consistency Prior to Swallow Mildly Thick (2) Evaluation Cognition During Swallowing Alert Self-Feeding Behaviors Coordinated Consistency Solid Consistency Uncontrolled 2 Other Swallow Amount soft food: 55 sec bolus prep which pt did prior to this CVA ; oral apraxia Method of Presentation Spoon Behaviors Observed Lengthy Oral Transit Time Occurrence of Coughing None Vocal Quality After Swallowing Clear Solid Consistency Uncontrolled 1 Other Swallow Amount mixed consi
--- NOTE | 2021-01-04 13:43 | PCSTNOTE ---
SPEECH THERAPY DISCHARGE: Attending Provider: Zack Hurst Patient:Willian Novoa Date of :1940 Patient?s initial visit was on 12/11/2020; he had a total of 11 visits. This 80 year old pt was seen for a dysphagia evaluation in outpatient speech therapy. Pt has a history of multiple CVA's with dysphagia and is known to this [facility]. He has been seen and treated for dysphagia in the past; his most recent CVA was July 23, 2020 which resulted in an exacerbation of dysphagia. After previous speech therapy, the pt had returned to a regular diet with regular liquids. Pt and spouse report he completed speech therapy and his PEG tube has been removed. The most recent MBS was completed on 11-17-20 which revealed the following: MODIFIED BARIUM SWALLOW STUDY on 11-17-20: Results suggested patient's swallowing skills were improving and that he could begin oral feedings. It was strongly suggested he have nectar or mildly thick liquids initially due to the random penetration noted and decreased ability to voluntarily cough and clear penetrated material. Regular diet was recommended but it was suggested soft foods are recommended to start, such as cottage cheese, spaghetti, meatloaf, etc. and patient voiced understanding of recommendations however it was requested they wait to begin oral feedings and liquids until they discuss with their primary care physician. Additionally, further Speech Therapy was recommended to continue to address weakness (lingual pumping, penetration on thin liquid, pharyngeal squeeze, base of tongue retraction, poor ability to cough, etc.) as well as lingual coordination exercises to reduce presence of lingual pumping on every bite/sip, effortful swallow/base of tongue retraction exercises to reduce/eliminate vallecular residue, laryngeal elevation exercises to reduce laryngeal penetration/risk for aspiration. A course of VitalStim, neuromuscular electrical stimulation (NMES), to the throat in order to increase the strength of the swallow to reduce risk of penetration/aspiration on thin liquids was also recommended. On evaluation in outpatient therapy, upon being given oral trials at bedside, a gurgly/wet vocal quality and a cough reflex was exhibited after the thin liquid trials. It was recommended that the pt continue with a level 5 diet with mildly thick liquids. 10 treatment sessions were completed; in therapy, NMES was utilized with dysphagia exercises. Within the last week, pt went to the ED and subsequently diagnosed with aspiration pneumonia. After ED visit, on a follow up visit with his physician, pt's physician recommended re insertion of the PEG tube. On day of discharge, pt came to session with the desire to discuss his progress and ask questions versus have the NMES and exercise. He had a Dr appointment yesterday; his physician stated that it appears he is no longer progressing in ST and likely he will not further improve his swallow ability; pt & his spouse asked many questions re his diet consistency, reinsertion of PEG tube, swallowing guidelines, & HEP. Pt was encouraged to continue the HEP in order to at least maintain his current level and to not have his diet downgraded any further. Pt desires to be discharged at this time. ST is in agreement with discharge. The goals have not been met. Thank you for referring this patient to [facility]. Please review, sign, date and return this discharge summary PIERCE. I have been updated about the patient's current status and I agree with discharge from the above service at this time. Referring Physician Date
== END 2021-01-04 17:44 | disposition home or self-care (01) ==
LOC: ANHST 11:00
DX: R13.10 Dysphagia, unspecified (principal)
CPT/HCPCS: 92522; 92526; 92610

== ENCOUNTER 2022-01-05 23:30 | Observation (INO) | payer OTHER, SELFPAY ==
--- NOTE | ~2022-01-05 | XR_ITS ---
EXAMINATION: XR barium swallow modified DATE: 01/08/2022 10:07 INDICATION: Dysphagia. TECHNIQUE: The patient was given barium-containing material of multiple consistencies to swallow by t he speech pathologist while I performed fluoroscopy. Fluoroscopy exposure time was 1.5 minutes. The n umber of fluoroscopy images saved to the PACS was 1. Dose-area product was 0.898 Gy-cm^2. FINDINGS: There is reduced labial seal/lip tension. There is reduced lingual movement. The oral stage is severe ly impacted with excessive tongue pumping. The patient was unable to swallow the second 3 mL aliquot of thin liquid by spoon. There was reduced laryngeal elevation, reduced tongue base retraction, sherwood cular residue, piriform sinus residue, and laryngeal penetration. IMPRESSION: 1. Laryngeal penetration with thin liquids. 2. Please refer to the speech therapy report for recommendations. Reviewed, dictated and finalized at location A.
[2022-01-05 23:30] VITALS: BP 151/93; PULSE 110; RESP 20; TEMP 36.3; O2SAT 96
[2022-01-05 23:36] VITALS: PULSE 113; O2SAT 98
[2022-01-05 23:39] VITALS: BP 143/110; PULSE 127; RESP 20; O2SAT 96
--- NOTE | 2022-01-05 23:44 | ED.GENADULT ---
HPI - General Adult General Chief complaint: Unspecified Stated complaint: pulled out peg tube approx 2030 Time Seen by Provider: 01/05/22 23:31 History of Present Illness HPI narrative: 81-year-old male presented to the emergency department for evaluation after removing his PEG tube. longterm states that the patient removed the PEG tube and balloon was still inflated. Upon arrival to the emergency department patient is denying any complaints. PEG tube site was had an intact dressing. Patient has history of A. fib with RVR and is on Cardizem. Patient has history of high cholesterol hypertension. Patient's last admission at our facility was December 2020. longterm was unable to provide any recent past medical history. Nursing staff was unable to contact the . longterm reported that the patient had a recent hospitalization at [facility] but had no documentation on the reasoning or the date of placement of the G-tube. Related Data Home Medications Medication Instructions Recorded Confirmed apixaban 5 mg tablet (Eliquis) 5 mg PO BID 12/30/20 12/30/20 bimatoprost 0.01 % eye drops 1 drp LEFT EYE HS 12/30/20 12/30/20 (Rafa) cholecalciferol (vitamin D3) 50 50 mcg PO DAILY 12/30/20 12/30/20 mcg (2,000 unit) capsule (Vitamin D3) diltiazem HCl 30 mg tablet 30 mg PO QID 12/30/20 12/30/20 lisinopril 40 mg tablet 40 mg PO DAILY 12/30/20 12/30/20 metoprolol tartrate 50 mg tablet 50 mg PO BID 12/30/20 12/30/20 simvastatin 20 mg tablet 20 mg PO HS 12/30/20 12/30/20 timolol maleate 0.5 % eye drops 1 drp LEFT EYE DAILY 12/30/20 12/30/20 Allergies Allergy/AdvReac Type Severity Reaction Status Date / Time Penicillins Allergy Severe Rash Verified 01/05/22 23:48 Review of Systems Review of Systems: Patient is a poor historian but denies any complaints. ROS unobtainable: Yes unobtainable due to medical condition PMFSH Past Medical History Medical History (Updated 12/31/20 @ 10:08 by Samm Ortega MD) Atrial fibrillation Benign prostatic hyperplasia Cerebrovascular accident Ischemic stroke in 2006. Hemorrhagic stroke on 04/17/2018. Ischemic stroke on 07/15/2020 with dysphagia and expressive aphasia. Chronic anticoagulation Glaucoma History of gastrostomy tube placement Hyperlipidemia Hypertension Surgical History Surgical History (Updated 12/30/20 @ 13:44 by Nicky Miles PA-C) History of open reduction and internal fixation (ORIF) procedure Left 5th finger. History of tonsillectomy Family History Family History Mother Diabetes mellitus Social History Social History (Updated 12/30/20 @ 18:35 by Nicky Miles PA-C) Social History: Surrogate decision maker: Rachna Novoa, . Code status: Full code. Smoking status: Never smoker Alcohol intake: never Substance use: never Additional living arrangements comments: Patient lives with his in [place]. He ambulates with a walker. Additional occupation/education comments: Retired. Previously enjoyed playing tennis. Exam Narrative: APPEARANCE: Well appearing, no pain, no distress, well-nourished. HEAD: normocephalic, atraumatic. EYES: PERRLA/EOMI, conjunctivae clear. NOSE: Normal no drainage NECK: Supple. No adenopathy, no masses. RESPIRATORY: Airway patent, respirations nonlabored. Clear to auscultation bilaterally, no rales, rhonchi, wheezing. CARDIOVASCULAR: Regular rate and rhythm without murmurs rubs or gallops. ABDOMINAL: Soft, nontender, nondistended, normal bowel sounds. PEG tube site well-appearing. No active bleeding. MUSCULOSKELETAL: Moves all extremities. Strength/ROM intact, No edema, No calf tenderness. NEURO: Alert. Cranial nerves II through XII intact. Grossly intact SKIN: Warm, dry. Normal Color Course Course Emergency Course: longterm states that the G-tube was a 20 Greenlandic. Unable to pass a 20 Greenlandic due to constriction of th
[2022-01-05 23:45] VITALS: PULSE 111; RESP 15; O2SAT 92
[2022-01-05 23:46] VITALS: BP 151/93; PULSE 105; RESP 14; O2SAT 92
[2022-01-06] VITALS (38 sets, daily range): BP systolic 125–165; BP diastolic 55–93; PULSE 81–126; RESP 12–31; TEMP 36.3–36.7; O2SAT 90–100; BMI 18.0
--- NOTE | 2022-01-06 00:06 | PC.NURSE ---
RN spoke to Lima Donnelly after multiple attempts. Speaking with Lima to discuss information on the PEG tube pt had placed. Lima states she has no information on the PEG tube. Asked if she could have access to the tube to see the size or see if there was any documentation on the PEG tube. She states that was on evening shift. I have no information on that. RN asked if they could find the PEG tube that pt pulled out to see if the size was located on it. Lima stated I have no idea where to even look for it. RN discussed importance of finding information on PEG tube to properly treat pt.
--- NOTE | 2022-01-06 00:26 | PC.NURSE ---
ERP attempted to place new PEG tube attempted a 20, 16. Unable to place. Attempted a 8 F camilo and was able to place. Tube is taped down and secured to prevent from ripping out again.
[2022-01-06] MEDS: dilTIAZem HCl INJ 25 MG/5 ML VIAL 10 MG IV PUSH (00:45)
--- NOTE | 2022-01-06 01:02 | PM.IMHP ---
H&P: HPI History of Present Illness Date/Time: 01/06/22 01:02 Chief Complaint: feeding tube malfunction Narrative: This is an 81-year-old male with past medical history significant for atrial fibrillation, benign prostatic hyperplasia, patient 1 chronic anticoagulation, hypertension, status post PEG tube placement. Patient resides at a residential he was brought for evaluation after his PEG tube came off. Most of the history has been obtained upon reviewing medical records. Patient is unable to give any history. Here in emergency room Dr. Richey was able to place a Singh catheter in the ostomy site to keep patency and GI has been consulted. while in the emergency room patient had episode of heart rate in the low 100s and clearly atrial fibrillation rhythm. Patient has been admitted for further evaluation management and treatment pain Review of Systems Review of Systems: ROS unobtainable: Yes unobtainable due to mental status PMFSH Past Medical History Medical History (Updated 01/06/22 @ 04:41 by Solo Meyer MD) Atrial fibrillation Benign prostatic hyperplasia Cerebrovascular accident Ischemic stroke in 2006. Hemorrhagic stroke on 04/17/2018. Ischemic stroke on 07/15/2020 with dysphagia and expressive aphasia. Chronic anticoagulation Glaucoma History of gastrostomy tube placement Hyperlipidemia Hypertension Surgical History Surgical History (Updated 12/30/20 @ 13:44 by Nicky Miles PA-C) History of open reduction and internal fixation (ORIF) procedure Left 5th finger. History of tonsillectomy Family History Family History Mother Diabetes mellitus Social History Social History (Updated 12/30/20 @ 18:35 by Nicky Miles PA-C) Social History: Surrogate decision maker: Rachna Novoa, . Code status: Full code. Smoking status: Never smoker Alcohol intake: never Substance use: never Substance use type: does not use Additional living arrangements comments: Patient lives with his in [place]. He ambulates with a walker. Additional occupation/education comments: Retired. Previously enjoyed playing tennis. Spiritual care concerns: No Meds Home Medications and Allergies Home Medications Medication Instructions Recorded Confirmed Type apixaban 5 mg tablet (Eliquis) 5 mg feeding tube BID 12/30/20 01/06/22 History bimatoprost 0.01 % eye drops 1 drp LEFT EYE HS 12/30/20 01/06/22 History (Lumigan) cholecalciferol (vitamin D3) 50 25 mcg feeding tube DAILY 12/30/20 01/06/22 History mcg (2,000 unit) capsule (Vitamin D3) diltiazem HCl 30 mg tablet 30 mg feeding tube QID 12/30/20 01/06/22 History lisinopril 40 mg tablet 10 mg feeding tube DAILY 12/30/20 01/06/22 History metoprolol tartrate 50 mg tablet 50 mg feeding tube BID 12/30/20 01/06/22 History timolol maleate 0.5 % eye drops 1 drp LEFT EYE BID 12/30/20 01/06/22 History acetaminophen 325 mg tablet 650 mg feeding tube QID PRN Pain 01/06/22 01/06/22 History latanoprost 0.005 % eye drops 1 drp LEFT EYE HS 01/06/22 01/06/22 History loperamide 2 mg capsule 2 mg PO Q4H PRN Diarrhea 01/06/22 01/06/22 History Allergies Allergy/AdvReac Type Severity Reaction Status Date / Time Penicillins Allergy Severe Rash Verified 01/05/22 23:48 Vital Signs Vital Signs - 24 hr 01/05/22 23:30 01/05/22 23:36 01/05/22 23:39 Temperature 97.3 F L Pulse Rate 110 H 113 H 127 H Respiratory Rate 20 20 Blood Pressure 151/93 H 143/110 H Pulse Oximetry 96 98 96 Oxygen Delivery Room Air 01/05/22 23:45 01/05/22 23:46 01/06/22 00:00 Temperature Pulse Rate 111 H 105 H 111 H Respiratory Rate 15 14 15 Blood Pressure 151/93 H Pulse Oximetry 92 92 92 Oxygen Delivery 01/06/22 00:01 01/06/22 00:15 01/06/22 00:16 Temperature Pulse Rate 114 H 123 H 124 H Respiratory Rate 15 23 H 23 H Blood Pressure 145/93 H 157/80 H Pulse Oximetry 91 95
[2022-01-06 01:31] LABS: Basophils Percent Auto 0.5 % (0.2-1.2); Eosinophils Absolute Auto 0.1 K/mm3 (0-0.3); Eosinophils Percent Auto 1.9 % (0-4.4); Hematocrit 33.4 % (42.0-52.0); Hemoglobin 10.3 g/dL (14.0-18.0); Immature Granulocyte Absolute 0.02 K/mm3 (0.00-0.031); Immature Granulocyte Percent A 0.3 % (0-0.5); Lymphocytes Absolute Auto 1.08 K/mm3 (0.9-3.2); Lymphocytes Percent Auto 18.4 % (18.3-44.2); Mean Corpuscular HGB Conc 30.8 g/dl (32-36); Mean Corpuscular Hemoglobin 34.9 pg (26-34); Mean Corpuscular Volume 113.2 fl (80-100); Mean Platelet Volume 9.6 fl (7.4-10.4); Monocytes Absolute Auto 0.8 K/mm3 (0.1-0.6); Monocytes Percent Auto 14.3 % (2.6-8.5); Neutrophils Absolute Auto 3.8 K/mm3 (1.3-6.7); Neutrophils Percent Auto 64.6 % (45.5-73.1); Platelet Count Result 230 k/mm3 (150-375); Red Blood Count 2.95 M/mm3 (4.6-6.20); Red Cell Distribution Width 17.6 % (11.5-14.5); White Blood Count 5.9 K/mm3 (4.5-10.0)
[2022-01-06] MEDS: dilTIAZem 100 MG/100 ML 100 MG/100 ML BAG IV CONT ×2 (01:40→17:10)
[2022-01-06] MEDS: SODIUM CHLORIDE 0.9% IV 1,000 ML 75 ML IV CONT ×2 (01:41→14:45)
[2022-01-06 01:42] LABS: Alanine Aminotransferase 20 U/L (6-50); Alkaline Phosphatase 161 U/L (38-126); Anion Gap 8 mmol/L (8-16); Aspartate Amino Transferase 30 U/L (17-59); Bilirubin,Total 2.5 mg/dL (0.2-1.3); Blood Urea Nitrogen 31 mg/dL (9-20); Calcium 8.8 mg/dL (8.4-10.2); Carbon Dioxide 27 mmol/L (22-30); Chloride 105 mmol/L (98-107); Estimated Glomerular Filt Rate > 60; Glucose 92 mg/dL (65-110); Potassium 3.1 mmol/L (3.4-5.0); Sodium 140 mmol/L (137-145)
--- NOTE | 2022-01-06 01:48 | PC.NURSE ---
Pt has bruising noted to right hip. Surgical site to right hip. Sutures intact.
[2022-01-06 01:49] LABS: SARS-CoV-2 RNA PCR Negative
--- NOTE | 2022-01-06 02:28 | PC.NURSE ---
This patient, Willian Novoa, was admitted to IMU Room 205-02 at 0225. Patient/family oriented to hospital policies and general routines including ID bracelet, bed and alarms, visiting hours, pain management, procedures, bathroom and other care routines, personal items, smoking policy, room service/diet, and visiting hours. Information on how to activate the Rapid Response Team has been discussed. Patient/Family are encouraged to report perceived risks to care and to ask questions if they do not understand what they are told or what they should do.
[2022-01-06] MEDS: POTASSIUM CHLORIDE INJ 40 MEQ in SODIUM CHLORIDE 0.9% IV 500 ML 130 MEQ IVPB (08:58)
[2022-01-06] MEDS: TIMOLOL MALEATE 0.5% OP SOLN 5 ML BOTTLE 1 DROP LEFT EYE (09:57)
[2022-01-06] MEDS: ONDANSETRON INJ 4 MG/2 ML VIAL IV PUSH (12:11)
--- NOTE | 2022-01-06 13:03 | WPDGICN ---
Assessment and Plan Assessment and plan (1) Malfunction of percutaneous endoscopic gastrostomy (PEG) tube: Code(s): K94.23 - Gastrostomy malfunction Status: Acute Assessment and Plan: will place a new g-tube endoscopically tomorrow, currently only small size camilo catheter and won't be enough for nutrition family agreeable hold eliquis antibiotic before placement (2) Dysphagia: Code(s): R13.10 - Dysphagia, unspecified Status: Acute Assessment and Plan: from cva still needs g-tube for feeding (3) Atrial fibrillation with rapid ventricular response: Code(s): I48.91 - Unspecified atrial fibrillation Status: Acute Assessment and Plan: treated (4) Chronic anticoagulation: Code(s): Z79.01 - half-way (current) use of anticoagulants Status: Acute (5) Hypertension: Qualifiers: Hypertension type: unspecified Qualified Code(s): I10 - Essential (primary) hypertension Code(s): I10 - Essential (primary) hypertension Status: Acute (6) Cerebrovascular accident: Code(s): I63.9 - Cerebral infarction, unspecified Status: Acute GI Consult Note Consult date/time: 01/06/22 13:03 Reason for consult: peg malfunctioning HPI: Willian Novoa is a 81 year old male with history of Afib on eliquis, CVA with dysphagia for which he required PEG placement about 16 months placed in [facility], HTN and recent Rt femur fracture last month for which he is in a detention now. He was brought here after staff noted that g-tube came out. He is poor historian and ER physician was able to place a remporary Camilo catheter in the ostomy site to keep patency but small size ~ 9 Niger[place]. Family is at bedside, patient denies any new problem. Review of Systems Review of Systems: poor historian Constitutional: Constitutional: Denies chills Eyes: Eyes: Denies blurry vision ENT: Reports dysphagia Cardiovascular: Cardiovascular: Denies chest pain Respiratory: Respiratory: Denies chest congestion Gastrointestinal: Gastrointestinal: Reports no additional gastrointestinal complaints Musculoskeletal: Musculoskeletal: Denies myalgias Integumentary/Breasts: Skin/Breast: Denies rash Neurologic: Reports as per HPI [facility] Past Medical History Medical History (Updated 01/06/22 @ 13:07 by Shravan Elaine MD) Atrial fibrillation Benign prostatic hyperplasia Cerebrovascular accident Ischemic stroke in 2007. Hemorrhagic stroke on 04/17/2018. Ischemic stroke on 07/15/2020 with dysphagia and expressive aphasia. Chronic anticoagulation Dysphagia Glaucoma History of gastrostomy tube placement Hyperlipidemia Hypertension Surgical History Surgical History (Updated 12/30/20 @ 13:44 by Nicky Miles PA-C) History of open reduction and internal fixation (ORIF) procedure Left 5th finger. History of tonsillectomy Family History Family History Mother Diabetes mellitus Social History Social History (Updated 12/30/20 @ 18:35 by Nicky Miles PA-C) Social History: Surrogate decision maker: Rachna Novoa, . Code status: Full code. Smoking status: Never smoker Alcohol intake: never Substance use: never Substance use type: does not use Additional living arrangements comments: Patient lives with his in [place]. He ambulates with a walker. Additional occupation/education comments: Retired. Previously enjoyed playing tennis. Spiritual care concerns: No Meds Home Medications and Allergies Home Medications Medication Instructions Recorded Confirmed Type apixaban 5 mg tablet (Eliquis) 5 mg feeding tube BID 12/30/20 01/06/22 History bimatoprost 0.01 % eye drops 1 drp LEFT EYE HS 12/30/20 01/06/22 History (Rafa) cholecalciferol (vitamin D3) 50 25 mcg feeding tube DAILY 12/30/20 01/06/22 History mcg (2,000 unit) capsule (Vitamin
--- NOTE | 2022-01-06 15:28 | PCPTNOTE ---
Attempted physical therapy initial evaluation, pt unable to stay awake to participate. Will continue to follow.
[2022-01-06] MEDS: LATANOPROST 0.005% OP SOLN 2.5 ML BTL 1 DROP LEFT EYE (21:07)
[2022-01-06 23:15] LABS: Glucose Point of Care 80 mg/dl (65-105)
[2022-01-07] VITALS (26 sets, daily range): BP systolic 131–159; BP diastolic 59–81; PULSE 75–112; RESP 12–24; TEMP 35.9–37.1; O2SAT 93–100; BMI 17.9
[2022-01-07] MEDS: SODIUM CHLORIDE 0.9% IV 1,000 ML 75 ML IV CONT ×2 (04:26→16:25)
[2022-01-07 05:34] LABS: Anion Gap 12 mmol/L (8-16); Blood Urea Nitrogen 28 mg/dL (9-20); Calcium 8.7 mg/dL (8.4-10.2); Carbon Dioxide 26 mmol/L (22-30); Chloride 108 mmol/L (98-107); Estimated CRCL calculation 50 ml/min; Estimated Glomerular Filt Rate > 60; Glucose 72 mg/dL (65-110); Potassium 3.5 mmol/L (3.4-5.0); Sodium 146 mmol/L (137-145)
[2022-01-07] MEDS: TIMOLOL MALEATE 0.5% OP SOLN 5 ML BOTTLE 1 DROP LEFT EYE ×2 (09:10→16:23)
--- NOTE | 2022-01-07 11:37 | PM.IMPN ---
Progress Note: A&P Assessment and Plan (1) Malfunction of percutaneous endoscopic gastrostomy (PEG) tube: Code(s): K94.23 - Gastrostomy malfunction Status: Acute Assessment and Plan: percutaneous gastrostomy tube came off Singh tube in place for patency GI has been consulted (2) Atrial fibrillation: Code(s): I48.91 - Unspecified atrial fibrillation Status: Acute Assessment and Plan: patient admitted to IMU restart medications as possible (3) Benign prostatic hyperplasia: Code(s): N40.0 - Benign prostatic hyperplasia without lower urinary tract symptoms Status: Acute Assessment and Plan: continue to monitor (4) Generalized weakness: Code(s): R53.1 - Weakness Status: Acute Assessment and Plan: bed rest (5) Chronic anticoagulation: Code(s): Z79.01 - longterm (current) use of anticoagulants Status: Acute Assessment and Plan: continue to monitor Subjective Date/time seen: 01/07/22 11:37 no complaints Exam Narrative: patient is laying in stretcher Const: General: comfortable, no acute distress, well developed, alert and awake Nutritional Appearance: average body habitus and underweight Orientation/consciousness: oriented to person HENMT: Head: normal to inspection, normocephalic and atraumatic Ears: hearing grossly normal bilaterally Face and sinus: normal facial exam Eyes: General: appearance normal, both eyes and all related structures Pupils: Equal, round and reactive pupils present EOM: EOMs intact bilaterally Neck: Neck: full ROM, no lymphadenopathy and no JVD Thyroid: thyroid normal Lymphatic: no lymphadenopathy noted Resp: Effort & Inspection: normal respiratory effort and able to speak in complete sentences Auscultation: clear to auscultation bilaterally Cardio: Jugular venous distension: no JVD Rate: regular rate Rhythm: regular rhythm Heart sounds: S1 normal heart sound present and S2 normal heart sound present GI: Inspection: other ( dressing in place) Other: ostomy with Singh catheter in place of percutaneous gastrostomy : General: Yes deferred Skin: Rashes: no rashes Wounds: no wounds Other: PEG tube ostomy in place Neuro: General: oriented to person, CN's II-XI intact bilaterally and Unable to assess gait Cranial nerves: Yes CN's II-XII intact bilaterally and Yes Equal, round and reactive pupils present Cognition (Neuro): abnormal cognition Speech: normal speech Gait exam (Neuro): Normal gait present and Unable to assess gait Motor exam (neuro): 5/5 motor strength present throughout Extrem: General: normal to inspection, full ROM, no joint enlargement and no pedal edema Objective Data Vital Signs Vital Signs: Vital Signs - 24 hr 01/06/22 12:58 01/06/22 12:00 01/06/22 12:00 Temperature Pulse Rate 84 82 Respiratory Rate Blood Pressure Pulse Oximetry Oxygen Delivery Room Air Room Air Oxygen Flow Rate 01/06/22 14:00 01/06/22 15:41 01/06/22 16:00 Temperature 97.5 F L Pulse Rate 84 81 88 Respiratory Rate 12 Blood Pressure 151/84 H Pulse Oximetry 93 Oxygen Delivery Oxygen Flow Rate 01/06/22 16:00 01/06/22 18:00 01/06/22 20:00 Temperature 98.1 F Pulse Rate 88 88 92 Respiratory Rate 12 16 Blood Pressure 141/55 H Pulse Oximetry 93 98 Oxygen Delivery Room Air Oxygen Flow Rate 01/06/22 20:00 01/06/22 20:00 01/06/22 22:00 Temperature Pulse Rate 87 92 90 Respiratory Rate 16 Blood Pressure Pulse Oximetry 98 Oxygen Delivery Room Air Oxygen Flow Rate 01/06/22 23:22 01/07/22 00:00 01/07/22 00:00 Temperature 97.5 F L Pulse Rate 87 97 87 Respiratory Rate 16 16 Blood Pressure 153/68 H Pulse Oximetry 100 100 Oxygen Delivery Room Air Oxygen Flow Rate 01/07/22 02:00 01/07/22 04:00 01/07/22 04:00 Temperature Pulse Rate 107 H 96 107 H Respiratory Rate 16 Blood Press
[2022-01-07] MEDS: levoFLOXacin 250 MG/D5W 50 ML 250 MG/50 ML BAG 50 MG IVPB (11:39)
[2022-01-07 11:48] LABS: Glucose Point of Care 78 mg/dl (65-105)
[2022-01-07] MEDS: LACTATED RINGERS 1,000 ML 150 ML IV CONT (13:05)
--- NOTE | 2022-01-07 13:13 | WPDANESEPPF ---
Anes - Initial Pre Proc Eval Procedure: Operation Date: 01/07/22 13:15 Proposed Procedures p Esophagogastroduodenoscopy - Shravan Elaine MD s Percutaneous Endoscopic Gastrostomy Placement - Shravan Elaine MD Date/Time: 01/07/22 13:13 Surgeon: Solo Meyer MD Pre Op Diagnosis: dislodged G-tube, A. fib with RVR Patient Data Age: 81 Gender: M Height: 1.78 m Weight: 56.6 kg Last Vital Signs Temp 36.1 C L 01/07/22 12:54 Pulse 94 01/07/22 12:54 Resp 18 01/07/22 12:54 BP 134/62 01/07/22 12:54 Pulse Ox 99 01/07/22 12:54 O2 Del Method Nasal Cannula 01/07/22 12:54 O2 Flow Rate 2 01/07/22 12:54 Allergies Allergy/AdvReac Type Severity Reaction Status Date / Time Penicillins Allergy Severe Rash Verified 01/05/22 23:48 Home Medications Medication Instructions Recorded Confirmed Type apixaban 5 mg tablet (Eliquis) 5 mg feeding tube BID 12/30/20 01/06/22 History bimatoprost 0.01 % eye drops 1 drp LEFT EYE HS 12/30/20 01/06/22 History (Rafa) cholecalciferol (vitamin D3) 50 25 mcg feeding tube DAILY 12/30/20 01/06/22 History mcg (2,000 unit) capsule (Vitamin D3) diltiazem HCl 30 mg tablet 30 mg feeding tube QID 12/30/20 01/06/22 History lisinopril 40 mg tablet 10 mg feeding tube DAILY 12/30/20 01/06/22 History metoprolol tartrate 50 mg tablet 50 mg feeding tube BID 12/30/20 01/06/22 History timolol maleate 0.5 % eye drops 1 drp LEFT EYE BID 12/30/20 01/06/22 History acetaminophen 325 mg tablet 650 mg feeding tube QID PRN Pain 01/06/22 01/06/22 History latanoprost 0.005 % eye drops 1 drp LEFT EYE HS 01/06/22 01/06/22 History loperamide 2 mg capsule 2 mg PO Q4H PRN Diarrhea 01/06/22 01/06/22 History Laboratory Tests 01/06/22 01/07/22 01/07/22 23:03 04:22 11:27 Sodium 146 mmol/L H mmol/L (137-145) Potassium 3.5 mmol/L mmol/L (3.4-5.0) Chloride 108 mmol/L H mmol/L (98-107) Carbon Dioxide 26 mmol/L mmol/L (22-30) Anion Gap 12 mmol/L mmol/L (8-16) BUN 28 mg/dL H mg/dL (9-20) Creatinine 0.80 mg/dL mg/dL (0.7-1.3) Estim Creat Clear Calc 50 ml/min ml/min Estimated GFR > 60 (59 - ) Glucose 72 mg/dL mg/dL (65-110) POC Capillary Glucose 80 mg/dl mg/dl 78 mg/dl mg/dl (65-105) (65-105) Calcium 8.7 mg/dL mg/dL (8.4-10.2) Patient hx anesthesia problems: none Family hx anesthesia problems: none Results Review: All pre-operative results and documents have been reviewed as part of the pre-operative evaluation. [facility] Past Medical History Medical History (Updated 01/06/22 @ 13:07 by Shravan Elaine MD) Atrial fibrillation Benign prostatic hyperplasia Cerebrovascular accident Ischemic stroke in 2006. Hemorrhagic stroke on 04/17/2018. Ischemic stroke on 07/15/2020 with dysphagia and expressive aphasia. Chronic anticoagulation Dysphagia Glaucoma History of gastrostomy tube placement Hyperlipidemia Hypertension Surgical History Surgical History (Updated 12/30/20 @ 13:44 by Nicky Miles PA-C) History of open reduction and internal fixation (ORIF) procedure Left 5th finger. History of tonsillectomy Family History Family History Mother Diabetes mellitus Social History Social History (Updated 12/30/20 @ 18:35 by Nicky Miles PA-C) Social History: Surrogate decision maker: Rachna Novoa, . Code status: Full code. Smoking status: Never smoker Alcohol intake: never Substance use: never Substance use type: does not use Additional living arrangements comments: Patient lives with his in [place]. He ambulates with a walker. Additional occupation/education comments: Retired. Previously enjoyed playing tennis. Spiritual care concerns: No Anes - Eval Final PreProcedure Day of Procedure 12/27
--- NOTE | 2022-01-07 13:32 | PCOTNOTE ---
Attempted to see patient this pm, however patient off floor at this time for procedure.
--- NOTE | 2022-01-07 13:33 | SUR.PREOP ---
updated on patient antibiotic administration given too early- no new orders for additional medication.
--- NOTE | 2022-01-07 14:12 | PCSTNOTE ---
Patient is undergoing PEG tube placement and therefore MBS will wait until tomorrow.
--- NOTE | 2022-01-07 15:37 | SUR.PHASEII ---
Abdominal binder placed on patient.
[2022-01-07] MEDS: dilTIAZem 100 MG/100 ML 100 MG/100 ML BAG IV CONT (16:01)
[2022-01-07] MEDS: dilTIAZem HCL 30 MG TABLET FEED TUBE ×2 (16:22→21:37)
[2022-01-07] MEDS: METOPROLOL TARTRATE 50 MG TAB FEED TUBE (21:37)
[2022-01-07] MEDS: LATANOPROST 0.005% OP SOLN 2.5 ML BTL 1 DROP LEFT EYE (21:48)
[2022-01-07 23:43] LABS: Glucose Point of Care 76 mg/dl (65-105)
[2022-01-08] VITALS (18 sets, daily range): BP systolic 130–171; BP diastolic 60–96; PULSE 66–117; RESP 16–21; TEMP 36.5–36.9; O2SAT 91–99
[2022-01-08 01:32] LABS: Glucose Point of Care 72 mg/dl (65-105)
[2022-01-08] MEDS: SODIUM CHLORIDE 0.9% IV 1,000 ML 75 ML IV CONT ×2 (05:48→19:49)
[2022-01-08 06:34] LABS: Glucose Point of Care 73 mg/dl (65-105)
[2022-01-08] MEDS: dilTIAZem HCL 30 MG TABLET FEED TUBE ×4 (09:09→20:45)
[2022-01-08] MEDS: METOPROLOL TARTRATE 50 MG TAB FEED TUBE ×2 (09:09→20:44)
[2022-01-08] MEDS: lisinopriL 10 MG TABLET FEED TUBE (09:09)
[2022-01-08] MEDS: CHOLECALCIFEROL 1,000 UNITS TABLET 1000 UNITS FEED TUBE (09:09)
[2022-01-08] MEDS: TIMOLOL MALEATE 0.5% OP SOLN 5 ML BOTTLE 1 DROP LEFT EYE ×2 (09:10→17:17)
--- NOTE | 2022-01-08 11:07 | PM.IMPN ---
Progress Note: A&P Assessment and Plan (1) Malfunction of percutaneous endoscopic gastrostomy (PEG) tube: Code(s): K94.23 - Gastrostomy malfunction Status: Acute Assessment and Plan: G-tube has been replaced will resume tube feeds will be at goal by tomorrow morning. Can be discharged tomorrow (2) Atrial fibrillation: Code(s): I48.91 - Unspecified atrial fibrillation Status: Acute Assessment and Plan: monitor (3) Benign prostatic hyperplasia: Code(s): N40.0 - Benign prostatic hyperplasia without lower urinary tract symptoms Status: Acute Assessment and Plan: continue to monitor (4) Generalized weakness: Code(s): R53.1 - Weakness Status: Acute Assessment and Plan: bed rest (5) Chronic anticoagulation: Code(s): Z79.01 - termite control technician (current) use of anticoagulants Status: Acute Assessment and Plan: continue to monitor Subjective Date/time seen: 01/08/22 11:07 no new complaints Exam Narrative: patient is laying in stretcher Const: General: comfortable, no acute distress, well developed, alert and awake Nutritional Appearance: average body habitus and underweight Orientation/consciousness: oriented to person HENMT: Head: normal to inspection, normocephalic and atraumatic Ears: hearing grossly normal bilaterally Face and sinus: normal facial exam Eyes: General: appearance normal, both eyes and all related structures Pupils: Equal, round and reactive pupils present EOM: EOMs intact bilaterally Neck: Neck: full ROM, no lymphadenopathy and no JVD Thyroid: thyroid normal Lymphatic: no lymphadenopathy noted Resp: Effort & Inspection: normal respiratory effort and able to speak in complete sentences Auscultation: clear to auscultation bilaterally Cardio: Jugular venous distension: no JVD Rate: regular rate Rhythm: regular rhythm Heart sounds: S1 normal heart sound present and S2 normal heart sound present GI: Inspection: other ( dressing in place) Other: ostomy with Singh catheter in place of percutaneous gastrostomy : General: Yes deferred Skin: Rashes: no rashes Wounds: no wounds Other: PEG tube ostomy in place Neuro: General: oriented to person, CN's II-XI intact bilaterally and Unable to assess gait Cranial nerves: Yes CN's II-XII intact bilaterally and Yes Equal, round and reactive pupils present Cognition (Neuro): abnormal cognition Speech: normal speech Gait exam (Neuro): Normal gait present and Unable to assess gait Motor exam (neuro): 5/5 motor strength present throughout Extrem: General: normal to inspection, full ROM, no joint enlargement and no pedal edema Objective Data Vital Signs Vital Signs: Vital Signs - 24 hr 01/07/22 11:52 01/07/22 12:02 01/07/22 12:00 Temperature 96.6 F L Pulse Rate 84 93 Respiratory Rate 18 Blood Pressure 137/59 L Pulse Oximetry 98 100 Oxygen Delivery Nasal Cannula Oxygen Flow Rate 2 01/07/22 12:54 01/07/22 15:20 01/07/22 15:30 Temperature 97 F L Pulse Rate 94 84 94 Respiratory Rate 18 20 20 Blood Pressure 134/62 145/69 H 147/71 H Pulse Oximetry 99 93 96 Oxygen Delivery Nasal Cannula Nasal Cannula Nasal Cannula Oxygen Flow Rate 2 2 2 01/07/22 15:40 01/07/22 16:01 01/07/22 16:26 Temperature 96.7 F L Pulse Rate 93 95 85 Respiratory Rate 24 H 18 Blood Pressure 159/79 H 138/70 Pulse Oximetry 93 96 Oxygen Delivery Nasal Cannula Oxygen Flow Rate 2 01/07/22 16:34 01/07/22 16:30 01/07/22 16:40 Temperature Pulse Rate 100 98 Respiratory Rate 14 16 Blood Pressure 146/62 H 133/72 Pulse Oximetry 100 96 100 Oxygen Delivery Nasal Cannula Oxygen Flow Rate 2 01/07/22 16:00 01/07/22 19:58 01/07/22 21:37 Temperature 97.6 F Pulse Rate 101 H 87 112 H Respiratory Rate 20 Blood Pressure 131/59 L Pulse Oximetry 99 Oxygen Delivery Oxygen Flow Rate 01/07/22 23:39 01/07/22 20:00 12/27
--- NOTE | 2022-01-08 11:10 | PCNFU ---
Nutrition Follow-Up Complete: Inadequate energy intake related to NPO status without nutrition support at this time as evidenced by current orders. Goal: Meet nutrition needs patient is progressing towards goal. We will continue current goal. Pt current nutrition is NPO. Nutrition recommendation: Jevity 1.5 at 20 ml/hr advance by 10 ml q 4 hours to goal rate of 60 ml/hr Last recorded weight is 59.8 kg, up from 56.6 kg on admit. Bowel Motility: No Bm reported. Labs Reviewed: No new labs to report Meds Noted:Vit D, Eliquis, Lisinopril Skin: WNL Additional Notes: Patient had MBS today, recommends for non oral feedings. MD orders to start tube feedings of Jevity 1.5 at 20 ml/hr advance by 10 ml q 4 hours to goal rate of 60 ml/hr. Goal rate of tube feeding providing 1980 kcals/84 gms protein/1000 ml water. Tube feeding formula is the same from facility patient has been staying at this time. Agree with diet orders. Monitor diet orders, intake, wt, labs. Follow up Friday/Friday.
--- NOTE | 2022-01-08 11:49 | PCSTNOTE ---
Modified barium swallow study, patient demonstrated severe dysphagia and was unable to swallow second liquid bolus, which he spit out when instructed to do so. Excessive linqual pumping and piece meal deglutination. Patient unable to follow directions to dry swallow, clear throat, or cough. Recommendation: NPO with occasional ice chip by spoon at nurses discretion to relieve excessive oral dryness.
[2022-01-08 12:13] LABS: Glucose Point of Care 81 mg/dl (65-105)
--- NOTE | 2022-01-08 13:09 | WPDANESPN ---
Anes - Prog Note Post-Op Date/Time: 01/08/22 10:36 Cardiovascular status: normal Respiratory status: normal Airway patency: baseline Mental status: baseline Post-Op hydration status: other Vital Signs: Last Vital Signs Temp 98.3 F 01/08/22 12:30 Pulse 87 01/08/22 12:30 Resp 21 H 01/08/22 12:30 BP 147/81 H 01/08/22 12:30 Pulse Ox 99 01/08/22 12:30 O2 Del Method Nasal Cannula 01/08/22 12:00 O2 Flow Rate 4 01/08/22 12:00 Pain Score (VAS): 0 I/O: Intake & Output 01/07/22 01/08/22 01/08/22 23:59 07:59 15:59 Intake Total 1110 1000 Output Total 100 Balance 1110 900 Laboratory Tests 01/06/22 01:26 01/07/22 04:22 01/07/22 01/07/22 01/08/22 18:31 23:43 06:31 POC Capillary Glucose 76 72 73 01/08/22 11:49 POC Capillary Glucose 81 Post-procedural complaints: none Patient Feedback: Patient satisfied with anesthetic care.
[2022-01-08 17:50] LABS: Glucose Point of Care 105 mg/dl (65-105)
[2022-01-08] MEDS: LATANOPROST 0.005% OP SOLN 2.5 ML BTL 1 DROP LEFT EYE (20:45)
[2022-01-08 23:25] LABS: Glucose Point of Care 137 mg/dl (65-105)
[2022-01-09] VITALS (11 sets, daily range): BP systolic 141–162; BP diastolic 64–98; PULSE 73–115; RESP 18–20; TEMP 35.9–36.6; O2SAT 93–100
--- NOTE | 2022-01-09 | ECHO_ITS ---
Patient Info Name: Willian Novoa Age: 81 years : 1940 Gender: Male Ht: 70 in Wt: 131 lbs BSA: 1.70 m2 HR: 88 bpm BP: 151 / 64 mmHg Heart Rhythm: Atrial Fibrillation Technical Quality: Fair Exam Date: 01/09/2022 9:15 AM Exam Location: [facility] Patient Status: Outpatient Admit Date: 01/06/2022 Staff Ordering Physician: Pipo Jyoner M.A., MD Veterinary Dentist: Aliyah Perez RDCS Attending Provider: Solo Meyer MD Referring Physician: Anurag LARSEN; Exam Type: CA echo doppler color flow Study Info [facility] Complete two-dimensional, color flow and Doppler transthoracic echocardiogram is performed. Summary 1. Complete two-dimensional, color flow and Doppler transthoracic echocardiogram is performed. 2. Left ventricular systolic function is preserved, estimated at 50-55%. 3. Ventricular septum is sigmoid shaped. No LVOT obstruction. 4. Left ventricular chamber dimension is normal. 5. The left ventricular diastolic function is grade III diastolic dysfunction. 6. E/e' 12 is mildly elevated. 7. Right ventricular systolic function is reduced based on abnormal TAPSE 1.6 cm. 8. Left atrial chamber dimension is severely enlarged. 9. Right atrial chamber dimension is moderately enlarged. 10. There is mild aortic valve sclerosis. 11. There is mild aortic valve regurgitation. 12. The mitral valve has mildly calcified annulus. 13. There is moderate mitral valve regurgitation. 14. There is moderate tricuspid valve regurgitation. 15. Severe pulmonary hypertension, estimated pulmonary arterial systolic pressure is 61 mmHg. 16. There is trace pulmonic regurgitation. 17. Small atheroma in anterior and posterior aortic root. 18. Large pleural effusions. 19. There is trivial pericardial effusion. Left Ventricle E/e' 12 is mildly elevated. Left ventricular systolic function is preserved, estimated at 50-55%. Ventricular septum is sigmoid shaped. No LVOT obstruction. Left ventricular chamber dimension is normal. The left ventricular diastolic function is grade III diastolic dysfunction. Right Ventricle Right ventricular systolic function is reduced based on abnormal TAPSE 1.6 cm. Right ventricular chamber dimension is not well visualized. Left Atria Left atrial chamber dimension is severely enlarged. Right Atria Right atrial chamber dimension is moderately enlarged. Aortic Valve The aortic valve is trileaflet. There is mild aortic valve sclerosis. There is no aortic valve stenosis. There is mild aortic valve regurgitation. Pulmonic Valve There is trace pulmonic regurgitation. Mitral Valve The mitral valve has mildly calcified annulus. There is no mitral valve stenosis. There is moderate mitral valve regurgitation. Tricuspid Valve There is moderate tricuspid valve regurgitation. Severe pulmonary hypertension, estimated pulmonary arterial systolic pressure is 61 mmHg. Pericardium/Pleural Large pleural effusions. There is trivial pericardial effusion. Inferior Vena Cava Inferior vena cava is not well visualized. Aorta The aortic root size at the sinus of Valsalva is normal. Small atheroma in anterior and posterior aortic root. Left Ventricular Outflow Tract Name Value Normal LVOT 2D --------
[2022-01-09 05:00] LABS: Hematocrit 34.4 % (42.0-52.0); Hemoglobin 10.7 g/dL (14.0-18.0); Mean Corpuscular HGB Conc 31.1 g/dl (32-36); Mean Corpuscular Hemoglobin 34.9 pg (26-34); Mean Corpuscular Volume 112.1 fl (80-100); Mean Platelet Volume 9.8 fl (7.4-10.4); Platelet Count Result 207 k/mm3 (150-375); Red Blood Count 3.07 M/mm3 (4.6-6.20); Red Cell Distribution Width 16.8 % (11.5-14.5); White Blood Count 6.3 K/mm3 (4.5-10.0)
[2022-01-09 05:05] LABS: Alanine Aminotransferase 17 U/L (6-50); Albumin Level 2.8 g/dL (3.5-5.1); Alkaline Phosphatase 153 U/L (38-126); Anion Gap 8 mmol/L (8-16); Aspartate Amino Transferase 21 U/L (17-59); Bilirubin,Total 1.7 mg/dL (0.2-1.3); Blood Urea Nitrogen 29 mg/dL (9-20); Calcium 9.1 mg/dL (8.4-10.2); Carbon Dioxide 26 mmol/L (22-30); Chloride 113 mmol/L (98-107); Estimated CRCL calculation 53 ml/min; Estimated Glomerular Filt Rate > 60; Glucose 156 mg/dL (65-110); Potassium 2.9 mmol/L (3.4-5.0); Sodium 147 mmol/L (137-145)
[2022-01-09 05:14] LABS: Troponin I 0.013 ng/mL (0.000-0.034)
[2022-01-09] MEDS: POTASSIUM CHLORIDE 20 MEQ PACKET (FOR LIQUID) 40 MEQ FEED TUBE (05:33)
[2022-01-09 06:36] LABS: Glucose Point of Care 149 mg/dl (65-105)
--- NOTE | 2022-01-09 09:03 | PCOTNOTE ---
patient unavailable, in procedure. Will continue plan of care for OT.
[2022-01-09] MEDS: SODIUM CHLORIDE 0.9% IV 1,000 ML 75 ML IV CONT (10:06)
[2022-01-09] MEDS: dilTIAZem HCL 30 MG TABLET FEED TUBE ×2 (10:10→13:19)
[2022-01-09] MEDS: METOPROLOL TARTRATE 50 MG TAB FEED TUBE (10:10)
[2022-01-09] MEDS: lisinopriL 10 MG TABLET FEED TUBE (10:10)
[2022-01-09] MEDS: POTASSIUM CHLORIDE 20 MEQ PACKET (FOR LIQUID) 40 MEQ PO ×2 (10:10→13:18)
[2022-01-09] MEDS: CHOLECALCIFEROL 1,000 UNITS TABLET 1000 UNITS FEED TUBE (10:10)
[2022-01-09] MEDS: TIMOLOL MALEATE 0.5% OP SOLN 5 ML BOTTLE 1 DROP LEFT EYE (10:10)
--- NOTE | 2022-01-09 10:46 | WPDGIPROGNO ---
Progress Note: A&P Assessment and Plan (1) Dysphagia: Code(s): R13.10 - Dysphagia, unspecified Status: Acute Assessment and Plan: from previous cva peg tube now (2) Malfunction of percutaneous endoscopic gastrostomy (PEG) tube: Code(s): K94.23 - Gastrostomy malfunction Status: Acute Assessment and Plan: new PEG was placed and tube feeding at goal, tolerating he will be discharged soon call if questions (3) Cerebrovascular accident: Code(s): I63.9 - Cerebral infarction, unspecified Status: Acute Subjective Date/time seen: 01/09/22 10:46 Interval history: tube feeding 50ml/h at goal and G-tube site looks ok Review of Systems Review of Systems: All systems reviewed & are unremarkable except as noted in HPI and below Exam Const: General: comfortable, no acute distress, alert and awake Nutritional Appearance: underweight Orientation/consciousness: oriented to person HENMT: Head: normal to inspection, normocephalic and atraumatic Ears: hearing grossly normal bilaterally Eyes: General: appearance normal, both eyes and all related structures Pupils: Equal, round and reactive pupils present EOM: EOMs intact bilaterally Neck: Neck: full ROM and no lymphadenopathy Resp: Effort & Inspection: normal respiratory effort Auscultation: clear to auscultation bilaterally Cardio: Jugular venous distension: no JVD Rate: regular rate Rhythm: regular rhythm Heart sounds: S1 normal heart sound present and S2 normal heart sound present GI: GI Palp: Yes Soft to palpation and No Tenderness to palpation present (GI) Auscultation: normal bowel sounds Other: G-tube in place, abdominal binder Skin: Rashes: no rashes Neuro: General: oriented to person Cognition (Neuro): abnormal cognition Speech: normal speech Extrem: General: normal to inspection and no pedal edema Objective Data Vital Signs Vital Signs: Vital Signs - 24 hr 01/08/22 12:00 01/08/22 12:00 01/08/22 12:30 Temperature 98.3 F Pulse Rate 93 87 Respiratory Rate 21 H Blood Pressure 147/81 H Pulse Oximetry 98 99 Oxygen Delivery Nasal Cannula Oxygen Flow Rate 4 01/08/22 14:00 01/08/22 16:00 01/08/22 16:00 Temperature Pulse Rate 86 84 Respiratory Rate Blood Pressure Pulse Oximetry 98 Oxygen Delivery Nasal Cannula Oxygen Flow Rate 4 01/08/22 16:52 01/08/22 18:00 01/08/22 20:44 Temperature 97.7 F Pulse Rate 90 81 88 Respiratory Rate 16 Blood Pressure 147/60 H Pulse Oximetry 97 Oxygen Delivery Oxygen Flow Rate 01/08/22 20:00 01/08/22 20:00 01/08/22 20:00 Temperature 97.7 F Pulse Rate 88 81 Respiratory Rate 18 Blood Pressure 154/63 H Pulse Oximetry 94 96 Oxygen Delivery Nasal Cannula Oxygen Flow Rate 4 01/08/22 22:00 01/09/22 00:00 01/09/22 00:00 Temperature 97.7 F Pulse Rate 66 77 Respiratory Rate 20 Blood Pressure 151/64 H Pulse Oximetry 98 97 Oxygen Delivery Nasal Cannula Oxygen Flow Rate 4 01/09/22 00:00 01/09/22 02:00 01/09/22 04:00 Temperature Pulse Rate 73 87 Respiratory Rate Blood Pressure Pulse Oximetry 100 Oxygen Delivery Nasal Cannula Oxygen Flow Rate 4 01/09/22 04:17 01/09/22 04:00 01/09/22 06:00 Temperature Pulse Rate 90 88 Respiratory Rate Blood Pressure Pulse Oximetry 100 Oxygen Delivery Nasal Cannula Oxygen Flow Rate 3 01/09/22 04:00 01/09/22 08:10 01/09/22 08:00 Temperature 97.8 F 97.8 F Pulse Rate 92 93 101 H Respiratory Rate 18 20 Blood Pressure 162/98 H 158/96 H Pulse Oximetry 98 99 Oxygen Delivery Oxygen Flow Rate 01/09/22 10:00 Temperature Pulse Rate 115 H Respiratory Rate Blood Pressure Pulse Oximetry Oxygen Delivery Oxygen Flow Rate Intake/Output Intake/Output: Intake & Output 01/06/22 01/07/22 01/08/22 01/09/22 23:59 23:59 23:59 23:59 Intake Total 1100 3130 2060 1823 Output Total 200 200
[2022-01-09 12:18] LABS: Glucose Point of Care 183 mg/dl (65-105)
--- NOTE | 2022-01-09 14:13 | PM.DS ---
DS: Admitting Diagnosis Discharge Date 01/09/2022 Admitting Diagnosis Malfunctioning G-tube DS: Discharge Diagnosis Discharge Diagnosis (1) Malfunction of percutaneous endoscopic gastrostomy (PEG) tube: Code(s): K94.23 - Gastrostomy malfunction Status: Acute Assessment and Plan: G-tube has been replaced will resume tube feeds will be at goal by tomorrow morning. Can be discharged tomorrow (2) Atrial fibrillation: Code(s): I48.91 - Unspecified atrial fibrillation Status: Acute Assessment and Plan: monitor (3) Benign prostatic hyperplasia: Code(s): N40.0 - Benign prostatic hyperplasia without lower urinary tract symptoms Status: Acute Assessment and Plan: continue to monitor (4) Generalized weakness: Code(s): R53.1 - Weakness Status: Acute Assessment and Plan: bed rest (5) Chronic anticoagulation: Code(s): Z79.01 - assisted (current) use of anticoagulants Status: Acute Assessment and Plan: continue to monitor DS: Summary Hospital Course Reason for hospitalization: Chief Complaint: ?feeding tube malfunction Narrative: ?This is an 81-year-old male with past medical history significant for atrial fibrillation, benign prostatic hyperplasia, patient 1 chronic anticoagulation, hypertension, status post PEG tube placement.? Patient resides at a [facility] he was brought for evaluation after his PEG tube came off.? Most of the history has been obtained upon reviewing medical records.? Patient is unable to give any history.? Here in emergency room Dr. Richey was able to place a Singh catheter in the ostomy site to keep patency and GI has been consulted. while in the emergency room patient had episode of heart rate in the low 100s and clearly atrial fibrillation rhythm.? Patient has been admitted for further evaluation management and treatment pain Hospital Course: patient presented malfunctioning G-tube was seen by GI and was replaced, and now patient is tolerating his G-tube feeding to the goal, while in the hospital patient developed atrial fibrillation not rate is controlled, is clinically stable will discharge the patient back to nursing Time Spent with Patient Time attestation: Total time spent providing and/or coordinating discharge services: Exam Narrative: Patient is comfortable, NAD HEENT: eyes are clear and none icteric LUNGS:CTA HEART: RR S1S2 ABD: BS+, Soft and nontender Lower extremities: no edema SKIN: nonjaundiced Neuro: grossly intact. DS: Data Data Completed and Pending Labs on day of discharge: Labs from last 24 hours 01/09/22 01/09/22 01/09/22 11:23 06:33 04:33 WBC RBC Hgb Hct MCV MCH MCHC RDW Plt Count MPV Sodium 147 H Potassium 2.9 L Chloride 113 H Carbon Dioxide 26 Anion Gap 8 BUN 29 H Creatinine 0.80 Estim Creat Clear Calc 53 Estimated GFR > 60 Glucose 156 H POC Capillary Glucose 183 H 149 H Calcium 9.1 Magnesium 2.0 Total Bilirubin 1.7 H AST 21 ALT 17 Alkaline Phosphatase 153 H Troponin I 0.013 Total Protein 6.0 L Albumin 2.8 L 01/09/22 01/08/22 01/08/22 04:33 23:22 17:34 WBC 6.3 RBC 3.07 L Hgb 10.7 L Hct 34.4 L MCV 112.1 H MCH 34.9 H MCHC 31.1 L RDW 16.8 H Plt Count 207 MPV 9.8 Sodium Potassium Chloride Carbon Dioxide Anion Gap BUN Creatinine Estim Creat Clear Calc Estimated GFR Glucose POC Capillary Glucose 137 H 105 Calcium Magnesium Total Bilirubin AST ALT Alkaline Phosphatase Troponin I Total Protein Albumin Discharge Plan Discharge Attending physician on discharge: Blaire Peacock Consulting providers: Shravan Elaine ; Kaiser Courtney ; Maurice Gomez ; Mario Barakat V. Discharging Clinician: Blaire Peacock
[2022-01-09 15:02] LABS: EDCOVIDSCREEN Negative (Negative)
== END 2022-01-09 16:02 ==
LOC: ANHED 01-06 00:03 → ANHIMU 01-06 01:58
PROVIDERS: Chiropractor; Internal Medicine; Internal Medicine Gastroenterology; Admitting Provider Internal Medicine; Emergency Provider Emergency Medicine; PCP Family Medicine; Visit Provider Family Medicine
PROC: 0DJ08ZZ Inspection of Upper Intestinal Tract, Via Natural or Artificial Opening Endoscopic (ICD-10-PCS; CPT 43235; principal; 2022-01-07 13:15)
PROC: 0DH63UZ Insertion of Feeding Device into Stomach, Percutaneous Approach (ICD-10-PCS; CPT 43246; 2022-01-07 13:15)
DX: Z43.1 Encounter for attention to gastrostomy (principal); I69.391 Dysphagia following cerebral infarction; I48.91 Unspecified atrial fibrillation; I10 Essential (primary) hypertension; K29.80 Duodenitis without bleeding; N40.0 Benign prostatic hyperplasia without lower urinary tract symptoms; H40.9 Unspecified glaucoma; R64 Cachexia; E78.5 Hyperlipidemia, unspecified; I08.3 Combined rheumatic disorders of mitral, aortic and tricuspid valves; Z79.1 Long term (current) use of non-steroidal anti-inflammatories (NSAID); Z79.01 Long term (current) use of anticoagulants; Z79.899 Other long term (current) drug therapy
CPT/HCPCS: 36415; 43246; 80048; 80053; 82948; 83735; 84484; 85025; 85027; 87426; 92611; 93306; 96361; 96365; 96366; 96374; 96375; 97110; 97161; 97165; 97530; 97535; 99285; A9270; C9803; G0378; J1956; J2001; J2405; J2704; J3480; J7030; J7040; J7120; U0003; U0005